=== PATIENT | male | born 1980 | race Caucasian/White ===

== ENCOUNTER → 2016-06-15 | Outpatient (CLI) | payer MEDICAID | LOC: FIMAGING 18:50 | PROVIDERS: ATTEND Internal Medicine Pulmonary Disease | DX: R22.2 Localized swelling, mass and lump, trunk (principal); G89.29 Other chronic pain ==

== ENCOUNTER → 2017-03-07 | Outpatient (CLI) | payer MEDICAID | LOC: FIMAGING 18:53 | PROVIDERS: ATTEND Family Medicine Sports Medicine | DX: R07.89 Other chest pain (principal) ==

== ENCOUNTER → 2017-03-24 | Outpatient (CLI) | payer MEDICAID | LOC: FIMAGING 18:52 | PROVIDERS: ATTEND Family Medicine Sports Medicine | DX: S73.192A Other sprain of left hip, initial encounter (principal); M25.852 Other specified joint disorders, left hip; M46.1 Sacroiliitis, not elsewhere classified ==